=== PATIENT | female | born 1995 | race Caucasian/White ===

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

== ENCOUNTER 2018-07-28 12:48 | Emergency (ER) | payer MEDICAID, OTHER ==
[2018-07-28 13:00] VITALS: BP 132/83
--- NOTE | 2018-07-28 13:59 | UC ---
Back Pain HPI - HPI Summary HPI Summary: severe back pain x 5 days pain is on right middle back , radiating to her right leg pain is 9 out of 10 injury at work as she was lifting something heavy increase pain with movements, better with rest - History of Current Complaint Chief Complaint: UCBackPain Stated Complaint: BACK PAIN Time Seen by Provider: 07/28/18 12:52 Hx Obtained From: Patient Hx Last Menstrual Period: 06/28/18 ?: No Onset/Duration: Sudden Onset, Lasting Days - 5, Still Present Timing: Constant Severity Initially: Severe Severity Currently: Severe Pain Intensity: 9 Pain Scale Used: 0-10 Numeric Back Pain: Is Discrete @ - right middle back, Radiates To - right leg Character: Throbbing Aggravating Factor(s): Movement, Lifting, Bending, Walking, Cough Alleviating Factor(s): Rest Associated Signs And Symptoms: Negative: Swelling, Redness, Bruising, Fever, Weakness, Numbness, Tingling, Abdominal Pain, Flank Pain, Bladder Incontinence - Allergies/Home Medications Allergies/Adverse Reactions: Allergies Allergy/AdvReac Type Severity Reaction Status Date / Time amoxicillin Allergy Severe Hives Verified 07/28/18 12:51 Home Medications: Home Medications NK [No Home Medications Reported] 07/28/18 [History Confirmed 07/28/18] PMH/Surg Hx/FS Hx/Imm Hx Previously Healthy: Yes - Surgical History Surgical History: None - Family History Known Family History: Negative: Diabetes - Social History Alcohol Use: Occasionally Substance Use Type: Marijuana Smoking Status (MU): Heavy Every Day Tobacco Smoker Type: Cigarettes Have You Smoked in the Last Year: Yes Household Exposure Type: Cigarettes - Immunization History Most Recent Influenza Vaccination: 09/12/16 Most Recent Tetanus Shot: 2016 Most Recent Pneumonia Vaccination: never Review of Systems Constitutional: Negative Skin: Negative Eyes: Negative ENT: Negative Respiratory: Negative Is Patient Immunocompromised?: No All Other Systems Reviewed And Are Negative: Yes Physical Exam Triage Information Reviewed: Yes Appearance: Pain Distress, Thin Vital Signs: Initial Vital Signs Temp 97.8 F 07/28/18 12:57 Pulse 110 07/28/18 12:57 Resp 20 07/28/18 12:57 BP 132/83 07/28/18 12:57 Pulse Ox 100 07/28/18 12:57 Vital Signs Reviewed: Yes Eyes: Positive: Conjunctiva Clear ENT: Positive: Normal ENT inspection, Hearing grossly normal, Pharynx normal Neck: Positive: Supple, Nontender, No Lymphadenopathy Respiratory: Positive: Chest non-tender, Lungs clear, Normal breath sounds Cardiovascular: Positive: RRR, No Murmur, Pulses Normal Musculoskeletal: Positive: Strength Intact, ROM Intact, Other: - back exam : no erythema, + severe tenderness right middle back , Back Pain Course/Dx - Differential Dx/Diagnosis Provider Diagnoses: back strain Discharge - Sign-Out/Discharge Documenting (check all that apply): Patient Departure All imaging exams completed and their final reports reviewed: No Studies - Discharge Plan Condition: Stable Disposition: HOME Prescriptions: Cyclobenzaprine TAB* [Flexeril 10 MG TAB*] 10 mg PO BID PRN #20 tab PRN Reason: Pain Naproxen [Naproxen 500 mg tab] 500 mg PO BID #20 tablet Patient Education Materials: Low Back Strain (ED) Forms: *Work Release Referrals: Tigist SCOTT,Cora Sharpe [Primary Care Provider] - - Billing Disposition and Condition Condition: STABLE Disposition: Home
== END 2018-07-28 13:12 | disposition home or self-care (01) ==
LOC: UCEAST 12:48
DX: S29.012A Strain of muscle and tendon of back wall of thorax, initial encounter (principal); X50.0XXA Overexertion from strenuous movement or load, initial encounter; Y93.9 Activity, unspecified; Y92.9 Unspecified place or not applicable; Y99.0 Civilian activity done for income or pay; Z88.0 Allergy status to penicillin; F17.210 Nicotine dependence, cigarettes, uncomplicated
CPT/HCPCS: 99212; G0463

== ENCOUNTER 2018-07-30 12:23 | Inpatient (IN) | payer MEDICAID, OTHER ==
[2018-07-30] MEDS ORDERED: NS 0.9% 1000 ML* 1,000 ML IV ONE ×2 (12:59→13:30)
[2018-07-30] MEDS ORDERED: Acetaminophen TAB* 325 MG PO ONE (13:03)
[2018-07-30] MEDS ORDERED: Ondansetron INJ* 2 MG/ML VIAL IV ONE (13:03)
[2018-07-30] MEDS ORDERED: Morphine VIAL* 10 MG/ML 1 ML VIAL IV ONE (13:03)
[2018-07-30] MEDS ORDERED: Acetaminophen TAB* 325 MG ONE (13:05)
[2018-07-30] MEDS ORDERED: Morphine INJ* 4 MG/ML 1 ML SYRINGE (NEW SYRINGE VERSION) ONE (13:05)
[2018-07-30] MEDS ORDERED: Ondansetron INJ* 2 MG/ML VIAL ONE (13:06)
[2018-07-30] MEDS ORDERED: NS 0.9% 1000 ML* 1,000 ML IV SCH (13:15)
--- NOTE | 2018-07-30 13:19 | RAD ---
INDICATION: Fever. COMPARISON: There are no relevant prior studies available for comparison. TECHNIQUE: A portable view of the chest was obtained. FINDINGS: Cardiac and mediastinal contours appear to be within normal limits. The lungs are clear. No pleural effusion is seen. IMPRESSION: NO EVIDENCE FOR ACUTE DISEASE.
--- NOTE | 2018-07-30 13:32 | ED ---
Abdominal Pain/Female - HPI Summary HPI Summary: This patient is a 23 year old F presenting to [facility] with a chief complaint of gradually worsening 10/10 RLQ abd pain since 07/24/18. She endorses fever and mild nausea. She denies emesis, diarrhea, hematuria, vaginal bleeding, blood in stool, SOB, and CP. - History of Current Complaint Chief Complaint: EDAbdPain Stated Complaint: BACK PAIN/ABD PAIN Time Seen by Provider: 07/30/18 12:55 Hx Obtained From: Patient Hx Last Menstrual Period: 06/28/18 Onset/Duration: Lasting Days, Still Present, Worse Since - gradually Timing: Constant Severity Initially: Moderate Severity Currently: Severe Pain Intensity: 10 Pain Scale Used: 0-10 Numeric Location: Discrete At: RLQ Radiates: No Aggravating Factor(s): Nothing Alleviating Factor(s): Nothing Associated Signs and Symptoms: Positive: Fever, Nausea. Negative: Chest Pain, Blood in Stool, Vaginal Bleeding, Vomiting, Diarrhea, Other: - SOB Allergies/Adverse Reactions: Allergies Allergy/AdvReac Type Severity Reaction Status Date / Time amoxicillin Allergy Severe Hives Verified 07/30/18 13:34 PMH/Surg Hx/FS Hx/Imm Hx Endocrine/Hematology History: Denies: Hx Sickle Cell Disease Cardiovascular History: Denies: Hx Pacemaker/ICD Respiratory History: Reports: Hx Asthma - Pt is a smoker Sensory History: Denies: Hx Legally Blind, Hx Deafness Opthamlomology History: Denies: Hx Legally Blind EENT History: Denies: Hx Deafness Psychiatric History: Reports: Hx Anxiety, Hx Depression - Immunization History Immunizations Up to Date: Yes Infectious Disease History: No Infectious Disease History: Denies: Traveled Outside the [place] in Last 30 Days - Family History Known Family History: Negative: Diabetes - Social History Alcohol Use: Occasionally Hx Substance Use: Yes Substance Use Type: Reports: Marijuana Hx Tobacco Use: Yes Smoking Status (MU): Current Every Day Smoker Type: Cigarettes Have You Smoked in the Last Year: Yes Review of Systems Positive: Fever Negative: Chest Pain Negative: Shortness Of Breath Positive: Abdominal Pain, Nausea. Negative: Vomiting, Diarrhea Negative: dysuria, discharge, hematuria, pain All Other Systems Reviewed And Are Negative: Yes Physical Exam - Summary Physical Exam Summary: Appearance: Well appearing, no pain distress Skin: warm, dry, reflects adequate perfusion Head/face: normal Eyes: EOMI, FREEDOM ENT: normal Neck: supple, non-tender Respiratory: CTA, breath sounds present Cardiovascular: Tachycardia, pulses symmetrical Abdomen: RLQ tenderness, Bowel: present Musculoskeletal: normal, strength/ROM intact Neuro: normal, sensory motor intact, A&Ox3 Triage Information Reviewed: Yes Vital Signs On Initial Exam: Initial Vitals Temp Pulse Resp BP Pulse Ox 100.1 F 155 22 136/81 95 07/30/18 12:47 07/30/18 12:47 07/30/18 12:47 07/30/18 12:47 07/30/18 12:47 Vital Signs Reviewed: Yes Diagnostics - Vital Signs Vital Signs Temp Pulse Resp BP Pulse Ox 07/30/18 13:12 16 07/30/18 13:03 155 22 137/86 100 07/30/18 12:59 161 18 100 07/30/18 12:47 100.1 F 155 22 136/81 95 - Laboratory Result Diagrams: 07/30/18 13:15 07/30/18 13:15 Lab Statement: Any lab studies that have been ordered have been reviewed, and results considered in the medical decision making process. - Radiology CXR Xray Interpretation: No Acute Changes Radiology Interpretation Completed By: Radiologist - No evidence for acute disease. Dr. Joseph has reviewed this report. - CT A/P CT Interpretation: Positive (See Comments) CT Interpretation Completed By: Radiologist - Multiple wedge-shaped defects are noted in the delayed images of the right kidney. Findings are suspicious for pyelonephritis. No obstructive uropathy is noted. A portion of a normal appendix is visualized although the distal tip is not well demonstrated. Small to moderate amount of free fluid is noted in the cul-de-sac. There may be a small amount of pericholecystic fluid noted although no evidence of gallstones are noted. Dr. Joseph has reviewed this report. - EKG 1257 Cardiac Rate: Tachycardia - 153 EKG Rhythm: Sinus Tachycardia ST Segment: Normal Ectopy: None EKG Interpretation: No acute changes Abdominal Pain Fem Course/Dx - Course Course Of Treatment: A 23-year-old F presents to the ED with a CC of worsening, now severe, 10/10 RLQ abd pain since 07/24/18. (+) fever, nausea. (-) CP, SOB, emesis, diarrhea, hematuria, vaginal bleeding, blood in stool. An EKG reveals sinus tachycardia at 153 BPM and no acute changes. A CXR was (-). A CT A/P reveals multiple wedge-shaped defects are noted in the delayed images of the right kidney. Findings are suspicious for pyelonephritis. No obstructive uropathy is noted. A portion of a normal appendix is visualized although the distal tip is not well demonstrated. Small to moderate amount of free fluid is noted in the cul-de-sac. There may be a small amount of pericholecystic fluid noted although no evidence of gallstones are noted. In the ED course, pt was given nl saline, tylenol, morphine, and zofran. - Diagnoses Differential Diagnosis: Positive: Appendicitis, Diverticulitis, Pancreatitis, Renal Colic, Urinary Tract Infection Provider Diagnoses: Pyelonephritis - Provider Notifications Discussed Care Of Patient With: Cornelia Varela Time Discussed With Above Provider: 15:50 Instructed by Provider To: Other - Accepts admission. - Critical Care Time Critical Care Time: 30-74 min Discharge - Sign-Out/Discharge Documenting (check all that apply): Patient Departure - admit - Discharge Plan Condition: Fair Disposition: ADMITTED TO [facility] Referrals: Tigist SCOTT,Cora Sharpe [Nurse Practitioner] - - Billing Disposition and Condition Condition: FAIR Disposition: Admitted to [facility] - Attestation Statements Document Initiated by Carlos: Yes Documenting Scribe: Everton Lino Provider For Whom Carlos is Documenting (Include Credential): Dr. Ger Joseph MD Scribe Attestation: Everton Anand scribed for Dr. Ger Joseph MD on 07/30/18 at 1630. Scribe Documentation Reviewed: Yes Provider Attestation: The documentation as recorded by the Everton segovia accurately reflects the service I personally performed and the decisions made by me, Dr. Ger Joseph MD
[2018-07-30 13:33] LABS: Hematocrit 44 % (35-47); Hemoglobin 14.7 g/dl (12.0-16.0); Mean Corpuscular HGB Conc 34 g/dl (31-36); Mean Corpuscular Hemoglobin 31 pg (27-31); Mean Corpuscular Volume 91 fL (80-97); Mean Platelet Volume 7.9 um3 (7.4-10.4); Platelet Count 249 10^3/ul (150-450); Red Blood Count 4.82 10^6/ul (4.00-5.40); Red Cell Distribution Width 13 % (10.5-15); White Blood Count 16.5 10^3/ul (3.5-10.8)
[2018-07-30 13:42] LABS: Activated Partial Thrombo Time 27.9 seconds (26.0-36.3); INR 0.94 (0.77-1.02)
[2018-07-30 13:44] LABS: ALT 12 U/L (7-52); AST 13 U/L (13-39); Albumin 3.9 g/dL (3.2-5.2); Albumin/Globulin Ratio 1.2 (1-3); Alkaline Phosphatase 48 U/L (34-104); Anion Gap 6 mmol/L (2-11); BUN/Creatinine Ratio 15.3 (8-20); Blood Urea Nitrogen 9 mg/dL (6-24); CO2 Carbon Dioxide 22 mmol/L (22-32); Calcium 9.3 mg/dL (8.6-10.3); Chloride 106 mmol/L (101-111); EGFR Non-African American 128.7 (>60); Globulin 3.2 g/dL (2-4); Glucose 103 mg/dL (70-100); Potassium 3.8 mmol/L (3.5-5.0); Sodium 134 mmol/L (135-145); Total Protein 7.1 g/dL (6.4-8.9)
[2018-07-30 13:50] LABS: HCG Pregnancy < 0.60 mIU/mL
[2018-07-30] MEDS ORDERED: Iohexol 300* (CONTRAST) 10 ML SDV IV ONE (14:10)
[2018-07-30 14:48] LABS: ABS Basophils 0 10^3/ul (0-0.2); ABS Eosinophils 0 10^3/ul (0-0.6); ABS Neutrophils 13.9 10^3/ul (1.5-7.7); Immature Granulocytes 7 % (0-9); Lymphocytes % 7 % (25-47); Monocytes % 2 % (0-7); Neutrophil % 84 % (38-83)
[2018-07-30 14:53] LABS: Urine Appearance Cloudy; Urine Bilirubin Negative (Negative); Urine Blood 2+ (Negative); Urine Color Yellow; Urine Glucose Negative (Negative); Urine Ketones Negative (Negative); Urine Nitrite Positive (Negative); Urine Protein 1+(30 mg/dL) (Negative); Urine Specific Gravity 1.006 (1.010-1.030); Urine Urobilinogen Negative (Negative)
[2018-07-30 15:01] LABS: Urine Bacteria 2+ (Absent); Urine Red Blood Cell 3+(>10/hpf) (Absent); Urine Transitional Epithelial Present (Absent); Urine White Blood Cell 3+(>20/hpf) (Absent)
--- NOTE | 2018-07-30 15:32 | RAD ---
Indication: Right lower quadrant tenderness. Contrast: Administered 64.0 ml of OMNIPAQUE 300 mg/ml CT of the abdomen and pelvis was performed after oral and IV contrast. Coronal and sagittal reconstructed images were obtained. Lung bases demonstrate no pleural fluid, nodules or masses. Heart is of normal size without evidence of pericardial effusion. Liver is normal in size. No focal lesions or intrahepatic ductal dilatation is noted. The gallbladder demonstrates no calcified gallstones. A small amount of pericholecystic fluid is present. The common duct is not dilated. Pancreas indicates no mass or pancreatic duct dilatation. Spleen is normal in size. No adrenal lesions are noted. The kidneys demonstrate symmetric nephrograms. Multiple wedge-shaped defects are noted in the delayed views of the right kidney. These defects are suspicious for pyelonephritis. The left kidney is otherwise unremarkable. No retroperitoneal adenopathy is noted. Aorta and inferior vena cava are unremarkable. No dilated loops of bowel are noted. The colon is filled with stool. The proximal appendix is visualized and appears to be normal caliber. The distal appendix is not well demonstrated. The urinary bladder demonstrates no focal masses. The uterus and ovaries are unremarkable. A small to moderate amount of free fluid is noted in the cul-de-sac. IMPRESSION: Multiple wedge-shaped defects are noted in the delayed images of the right kidney. Findings are suspicious for pyelonephritis. No obstructive uropathy is noted. A portion of a normal appendix is visualized although the distal tip is not well demonstrated. Small to moderate amount of free fluid is noted in the cul-de-sac. There may be a small amount of pericholecystic fluid noted although no evidence of gallstones are noted.
[2018-07-30] MEDS ORDERED: Levofloxacin 500 MG IVPREMIX(* 500 MG/100 ML BAG IVPB ONE (15:38)
--- NOTE | 2018-07-30 16:45 | RAD ---
Indication: Cholecystitis. Real-time sonography of the right upper quadrant performed. The liver is at the upper limits of normal in size. No focal lesions or intrahepatic duct dilatation is noted. The gallbladder is partially contracted with apparent wall thickening of 3 mm. Common duct measures 0.4 cm. The right kidney measures 12.4 x 5.2 x 5.6 cm with hydronephrosis. The pancreas head, neck and proximal body demonstrates no mass or pancreatic duct dilatation. Aorta and inferior vena cava are unremarkable. IMPRESSION: Partially contracted gallbladder with no gallstones. Mild wall thickening of the gallbladder is noted.
[2018-07-30] MEDS ORDERED: Morphine INJ* 4 MG/ML 1 ML SYRINGE (NEW SYRINGE VERSION) IV PRN (16:54)
[2018-07-30] MEDS ORDERED: Ondansetron INJ* 2 MG/ML VIAL IV PRN (16:54)
[2018-07-30] MEDS: NS 0.9% 1000 ML* 1,000 ML IV SCH ×2 (17:23→18:36)
[2018-07-30] MEDS: Morphine VIAL* 4 MG/ML VIAL (1 ml vial) IV PRN (18:35)
[2018-07-30] MEDS: HYDROcodone/ACETAMIN 5-325 MG* 1 TAB PO PRN ×2 (18:41→22:37)
[2018-07-30] MEDS ORDERED: Docusate CAP* 100 MG PO PRN (20:49)
[2018-07-30] MEDS ORDERED: Senna TAB PO PRN (20:49)
--- NOTE | 2018-07-30 21:40 | HP ---
CC: Dr. Zach Munoz * HISTORY AND PHYSICAL: DATE OF ADMISSION: 07/30/18 PRIMARY CARE PROVIDER: Dr. Zach Munoz. CHIEF COMPLAINT: Right flank pain. HISTORY OF PRESENT ILLNESS: Ms. Flores is a 23-year-old female who states that this past Friday, on 07/24/18, she began to have right-sided flank pain. 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 She noted the pain continued to worsen and therefore, on 07/28/18, was seen at urgent care. At that point, she was started on naproxen and Flexeril for presumed muscle pull. Ultimately, the pain progressed, now wraps around to her right side of the abdomen. She also feels pain into her groin. She denies any fevers or chills, but states that in the emergency room at [facility], she was identified to have a fever. She denies any dysuria. She notes that her urine output has decreased. She also notes that her urine has been cloudy and smells foul. She has never had anything like this in the past. PAST MEDICAL HISTORY: None. PAST SURGICAL HISTORY: Tonsillectomy. MEDICATIONS: OCP. ALLERGIES: AMOXICILLIN, which causes hives. FAMILY HISTORY: Mom is living, she is 53 and healthy. Dad is living, he is 49 and has a history of emphysema and diabetes. SOCIAL HISTORY: The patient smokes 1 pack per day. She drinks alcohol occasionally. She denies any recreational drugs. She works as a commercial attorney. She is not . She has 1 child. She indicates that her mom and dad will be her healthcare proxies. REVIEW OF SYSTEMS: The patient denies any fevers prior to today. No anorexia. She states that she has chest pain, though when I asked to clarify this, she points to her right lower ribs. She denies any cough. She states that yes she has shortness of breath; however, again when I asked to clarify this, she states that it hurts to take a deep breath in. She denies any nausea or vomiting. She does admit to the right-sided abdominal pain. She also admits to constipation. No hematuria, no dysuria. No focal weakness or sensory loss. No sudden changes in vision. No dysphagia. No joint pains or muscle pains out of the ordinary. No rashes. No anxiety or depression. PHYSICAL EXAMINATION GENERAL: The patient is a well-developed thin young female seen sitting up in the stretcher, in no acute distress. VITAL SIGNS: Blood pressure 108/77, pulse 109, respirations 20, temp 100.1, O2 sat 100% on room air. HEENT: Pupils are equal and round. Extraocular muscles are intact. Oropharynx is clear. Oral mucosa is slightly dry. There is no submandibular, cervical, or supraclavicular adenopathy. Thyroid is not enlarged. No thyroid nodules are noted. PULMONARY: Lungs are clear to auscultation bilaterally. CARDIAC: Normal S1, S2. Heart rate is tachycardic, but regular. There is no lower extremity edema. ABDOMEN: Bowel sounds are present. Abdomen is soft, nondistended. She is moderately tender to palpation in the right upper and lower quadrants. There is right-sided CVA tenderness. MUSCULOSKELETAL: There is no cyanosis or clubbing of the digits. There is full active range of motion of all 4 extremities. NEURO: Cranial nerves II through XII are grossly intact. Sensation is intact to light touch throughout. Strength is 5/5 and symmetric in both upper and lower extremities bilaterally. PSYCH: The patient is alert. She is oriented x3. Affect appears appropriate. SKIN: Warm and dry. There are no rashes. DIAGNOSTIC STUDIES/LAB DATA: WBC 16.5, hemoglobin 14.7, hematocrit 44, platelets 249,000. INR 0.94. Sodium 134, potassium 3.8, chloride 106, CO2 of 22, BUN 9, creatinine 0.59, glucose 103, lactic acid 1.6, calcium 9.3. Bilirubin 0.3, AST 13, ALT 12, alk phos 48. Albumin 3.9, lipase less than 10. Urinalysis reveals specific gravity of 1.006, 1+ protein, 2+ blood, positive nitrites, 3+ leukocyte esterase, 3+ wbc's, 2+ rbc's, 2+ bacteria. EKG reveals sinus tachycardia without any acute ST-T wave abnormalities. Chest x-ray: No evidence for acute disease. CT abdomen and pelvis: There are multiple wedge-shaped defects that are noted in the delayed images of the right kidney. Findings are suspicious for pyelonephritis. No obstructive uropathy is noted. A portion of normal appendix is visualized, although the distal tip is not well demonstrated. A small to moderate amount of free fluid is noted in the cul-de-sac. There may be a small amount of pericholecystic fluid noted, although no evidence of gallstones is noted. Gallbladder ultrasound reveals a partially contracted gallbladder with no gallstones. Mild wall thickening of the gallbladder is noted. The common bile duct measures 0.4 cm. ASSESSMENT AND PLAN: Ms. Flores is a 23-year-old female, who has no significant past medical history, who presents to the emergency room with complaints of right flank pain for the last 7 days and is identified to be septic secondary to right-sided pyelonephritis. 1. Sepsis secondary to right-sided pyelonephritis. By sepsis-2 criteria, the patient is septic with tachycardia, tachypnea, and leukocytosis. The patient has no evidence of end organ dysfunction. At this point, the patient will be admitted for IV antibiotics for treatment of her pyelonephritis. She will continue to receive IV fluids at 100 mL per hour. The patient has received 2 L of normal saline in the emergency room bolused, which surpasses the 30 mL/kg recommendation for sepsis. Despite this, the patient does remain tachycardic, though generally her heart rate is much improved. The patient will have followup labs tomorrow. As she is allergic to AMOXICILLIN, we will continue Levaquin, which was started in the emergency room. The patient will have pain control with morphine and [place] as well as nausea control with Zofran. 2. DVT prophylaxis: According to the Adult Thrombosis Prophylaxis Risk Factor Assessment Guide, the patient has a total risk factor score of 1 making her low risk. Ambulation will be utilized as DVT prophylaxis. 3. Code status is full. TIME SPENT: Fifty five minutes were spent admitting this patient. [id number]/[facility] #: [id number] HOW[place]
[2018-07-30] MEDS: Nicotine PATCH 14 MG/24 HR* PATCH TRANSDERM SCH (22:37)
[2018-07-31] MEDS: Morphine VIAL* 4 MG/ML VIAL (1 ml vial) IV PRN (00:29)
[2018-07-31] MEDS: HYDROcodone/ACETAMIN 5-325 MG* 1 TAB PO PRN ×2 (04:02→08:44)
[2018-07-31] MEDS: NS 0.9% 1000 ML* 1,000 ML IV SCH (05:09)
[2018-07-31] MEDS ORDERED: Morphine VIAL* 4 MG/ML VIAL (1 ml vial) IV PRN (05:24)
[2018-07-31 07:16] LABS: Hematocrit 34 % (35-47); Hemoglobin 11.4 g/dl (12.0-16.0); Mean Corpuscular HGB Conc 34 g/dl (31-36); Mean Corpuscular Hemoglobin 31 pg (27-31); Mean Corpuscular Volume 91 fL (80-97); Mean Platelet Volume 7.5 um3 (7.4-10.4); Platelet Count 198 10^3/ul (150-450); Red Blood Count 3.73 10^6/ul (4.00-5.40); Red Cell Distribution Width 13 % (10.5-15); White Blood Count 13.8 10^3/ul (3.5-10.8)
[2018-07-31 07:41] LABS: BUN/Creatinine Ratio 11.4 (8-20); Calcium 8.4 mg/dL (8.6-10.3); EGFR Non-African American 180.5 (>60); Potassium 4.4 mmol/L (3.5-5.0)
[2018-07-31] MEDS: Nicotine PATCH 14 MG/24 HR* PATCH TRANSDERM SCH (08:43)
[2018-07-31 10:32] VITALS: BP 140/79
--- NOTE | 2018-07-31 11:24 | PN ---
"Progress Note - Progress Note Date of Service: 07/31/18 Note: This report was requested by: Kelby Escobedo | Reference #: [id number] Others' Prescriptions Patient Name: Jen Flores Date: 1995 Address: [place] [address] Sex: Female Rx Written Rx Dispensed Drug Quantity Days Supply Prescriber Name 05/13/2018 05/13/2018 oxycodone-acetaminophen 5-325 mg tab 20 5 Maria Luisa Chance ( DDS)"
[2018-07-31] MEDS ORDERED: Levofloxacin 500 MG IVPREMIX(* 500 MG/100 ML BAG IVPB SCH (16:00)
[2018-07-31] MEDS ORDERED: Nicotine Patch Removal NOTE PATCH OFF SCH (21:00)
--- NOTE | 2018-08-01 03:54 | DS ---
DISCHARGE SUMMARY: DATE OF ADMISSION: DATE OF DISCHARGE: 07/31/18 HISTORY OF PRESENT ILLNESS: This 23-year-old woman developed right flank pain about a week ago. She was seen at Urgent Care. She was thought to initially have some type of musculoskeletal injury and was prescribed cyclobenzaprine and naproxen; however, she did not get better. She came to the [facility]. A fever was identified there. She had no fever here. She had abnormal urinalysis. CT scan showed m ultiple wedge-shaped defects in the right kidney consistent with pyelonephritis. Her temperature was 100.1 first noted on 07/30/18, at 12:47 p.m. I do not see any records of temperatures in the emergen cy room itself. The patient was given levofloxacin. Two blood cultures were drawn and no growth at the time of this dictation. Urine seems to be growing the E. coli. Sensitivities are pending. The patient will be discharged on the 7-day course of ciprofloxacin. She was instructed to call me t omorrow to get her urine sensitivities. She was given 10 oxycodone and acetaminophen to use p.r.n. p ain. I note the patient was having a personal crisis at the time of discharge I believe relating to her re lationship with her boyfriend. He came and seemed to be helpful and will be driving her to her [facility] home. She will steel pickler her prescriptions first. She was given a work release to return to work on 08/06/18. FINAL DIAGNOSES: 1. Pyelonephritis. 2. Tobacco use disorder. MEDICATIONS ON DISCHARGE: 1. Ciprofloxacin 500 mg b.i.d. for 7 days. 2. Nicotine patch 14 mg daily. 3. Oxycodone and acetaminophen 5/325 one every 4 hours p.r.n. maximum. FOLLOWUP: The patient will f ollow up with [facility]. DISCHARGE DISPOSITION: Home. DISCHARGE CONDITION: Improved. [id number]/[facility] #: [id number]
== END 2018-07-31 11:20 | disposition home or self-care (01) | DRG 720 ==
LOC: ED 12:23 → INTOOBSV 16:44 → MED 16:44 → OBSVTOIN 16:44
PROVIDERS: ADMIT Hospitalist; ATTEND Internal Medicine
DX: A41.9 Sepsis, unspecified organism (principal); N12 Tubulo-interstitial nephritis, not specified as acute or chronic; J45.909 Unspecified asthma, uncomplicated; F41.9 Anxiety disorder, unspecified; F32.9 Major depressive disorder, single episode, unspecified; F17.210 Nicotine dependence, cigarettes, uncomplicated; Z72.89 Other problems related to lifestyle; Z88.0 Allergy status to penicillin
CPT/HCPCS: 36415; 71045; 74177; 76705; 80048; 80053; 81003; 81015; 83605; 83690; 84702; 85025; 85027; 85610; 85730; 87040; 87077; 87086; 87186; 93005; 99283; A9270-GY; J1956; J2270; J2405; Q9967

== ENCOUNTER 2018-08-02 18:15 | Emergency (ER) | payer MEDICAID ==
[2018-08-02 19:44] LABS: Urine Appearance Cloudy; Urine Blood 1+ (Negative); Urine Color Yellow; Urine Ketones Negative (Negative); Urine Protein Negative (Negative); Urine Red Blood Cell Trace(0-2/hpf) (Absent); Urine Specific Gravity 1.017 (1.010-1.030); Urine Urobilinogen Negative (Negative); Urine White Blood Cell Absent (Absent)
[2018-08-02 19:49] LABS: ABS Basophils 0 10^3/ul (0-0.2); ABS Eosinophils 0.2 10^3/ul (0-0.6); ABS Lymphocytes 1.6 10^3/ul (1.0-4.8); ABS Monocytes 0.7 10^3/ul (0-0.8); ABS Neutrophils 2.1 10^3/ul (1.5-7.7); ABS Nucleated RBC 0 10^3/ul; Eosinophil % 3.7 % (0-6); Hematocrit 40 % (35-47); Hemoglobin 13.6 g/dl (12.0-16.0); Lymphocyte % 35.4 % (25-47); Mean Corpuscular HGB Conc 34 g/dl (31-36); Mean Corpuscular Hemoglobin 30 pg (27-31); Mean Corpuscular Volume 90 fL (80-97); Nucleated Red Blood Cells % 0.1; Platelet Count 341 10^3/ul (150-450); Red Blood Count 4.48 10^6/ul (4.00-5.40); Red Cell Distribution Width 13 % (10.5-15); White Blood Count 4.6 10^3/ul (3.5-10.8)
[2018-08-02 20:04] LABS: EGFR Non-African American 131.2 (>60)
[2018-08-02] MEDS ORDERED: NS 0.9% 1000 ML* 1,000 ML IV ONE (21:08)
[2018-08-02] MEDS ORDERED: Ondansetron INJ* 2 MG/ML VIAL IV ONE (21:08)
[2018-08-02] MEDS ORDERED: Ketorolac INJ* 30 MG/ML 1 ML VIAL IV PUSH ONE (21:09)
--- NOTE | 2018-08-02 22:05 | ED ---
Abdominal Pain/Female - HPI Summary HPI Summary: The pt is a 23 y.o female presenting to the [facility] with a chief complaint of right flank pain. The pt was seen at the [facility] prior for a kidney infection. She states she has back pain that radiates to the abd and down to the legs. She denies and states she is on control. The pt also denies fevers, chills, vaginal discharge, STD hx, blurry vision, double vision, ear ache, sore throat, chest pain, N/V, SOB, hematuria, and rashes. She reports she has AMAYA, anxiety, depression, neck pain and that she easily bruises. She was receiving treatment for depression but stopped after her previous . She also reports palpitations. The patient rates the pain 6/10 in severity. Symptoms aggravated by nothing. Symptoms alleviated by nothing. - History of Current Complaint Chief Complaint: EDFlankPain Stated Complaint: ABD AND BACK PAIN Hx Obtained From: Patient Hx Last Menstrual Period: 06/28/18 Onset/Duration: Gradual Onset, Lasting Days - since Friday (07/31/18) Severity Initially: Moderate Severity Currently: Moderate Pain Intensity: 6 Pain Scale Used: 0-10 Numeric Radiates to: Back, Other - abd and lower extremities Aggravating Factor(s): Nothing Alleviating Factor(s): Nothing Allergies/Adverse Reactions: Allergies Allergy/AdvReac Type Severity Reaction Status Date / Time amoxicillin Allergy Severe Hives Verified 08/02/18 18:21 PMH/Surg Hx/FS Hx/Imm Hx Endocrine/Hematology History: Denies: Hx Diabetes, Hx Sickle Cell Disease Cardiovascular History: Denies: Hx Hypertension, Hx Pacemaker/ICD Respiratory History: Reports: Hx Asthma - Pt is a smoker Sensory History: Denies: Hx Contacts or Glasses, Hx Legally Blind, Hx Deafness, Hx Hearing Aid Opthamlomology History: Denies: Hx Contacts or Glasses, Hx Legally Blind Psychiatric History: Reports: Hx Anxiety, Hx Depression - Immunization History Date of Tetanus Vaccine: unk Date of Influenza Vaccine: none Infectious Disease History: No Infectious Disease History: Denies: Traveled Outside the [place] in Last 30 Days - Family History Known Family History: Positive: Other - Cancer Negative: Cardiac Disease, Diabetes Family History: Reviewed and noncontributory - Social History Alcohol Use: Weekly Alcohol Amount: few drinks in the weekend Hx Substance Use: Yes Substance Use Type: Reports: None Substance Use Comment - Amount & Last Used: pt denies use Hx Tobacco Use: Yes Smoking Status (MU): Heavy Every Day Tobacco Smoker Type: Cigarettes Amount Used/How Often: 1 pack a day Have You Smoked in the Last Year: Yes Review of Systems Negative: Fever, Chills Eyes: Other - Negative double vision Negative: Blurred Vision Negative: Sore Throat, Ear Ache Negative: Chest Pain Negative: Shortness Of Breath Negative: Abdominal Pain, Vomiting, Nausea Negative: burning, hematuria Musculoskeletal: Other - Negative back pain Negative: Rash Positive: Headache Positive: Anxious, Depressed All Other Systems Reviewed And Are Negative: No Physical Exam - Summary Physical Exam Summary: Appearance: Mild discomfort Skin: Warm, dry, no mottling, no rashes, no contusions HEENT: EOMI, PERRL, moist mucous membranes Neck: No masses on the neck, supple Respiratory: Clear to auscultation, breath sounds present, no rales, no rhonchi , no wheezes Cardiovascular: RRR, pulses are symmetrical in both lower and upper extremities Abdomen: Soft, non-tender Bowel Sounds: Present Musculoskeletal: No CVA tenderness, no obvious deformity, moving all extremities in a grossly normal manner Neurological: A&Ox3, CN II-XII Intact, moving all extremities symmetrically Psychiatric: Normal affect and mood Triage Information Reviewed: Yes Vital Signs On Initial Exam: Initial Vitals Temp Pulse Resp BP Pulse Ox 97.4 F 129 16 130/86 99 08/02/18 18:16 08/02/18 18:16 08/02/18 18:16 08/02/18 18:16 08/02/18 18:16 Vital Signs Reviewed: Yes Diagnostics - Vital Signs Vital Signs Temp Pulse Resp BP Pulse Ox 08/02/18 19:00 117 18 100 08/02/18 18:51 116 23 120/89 100 08/02/18 18:16 97.4 F 129 16 130/86 99 - Laboratory Lab Results: Lab Results 08/02/18 08/02/18 08/02/18 Range/Units 19:25 19:35 19:35 WBC 4.6 (3.5-10.8) 10^3/ul RBC 4.48 (4.00-5.40) 10^6/ul Hgb 13.6 (12.0-16.0) g/dl Hct 40 (35-47) % MCV 90 (80-97) fL MCH 30 (27-31) pg MCHC 34 (31-36) g/dl RDW 13 (10.5-15) % Plt Count 341 (150-450) 10^3/ul MPV 7.0 L (7.4-10.4) um3 Neut % (Auto) 44.6 (38-83) % Lymph % (Auto) 35.4 (25-47) % [place] % (Auto) 15.7 H (0-7) % Eos % (Auto) 3.7 (0-6) % Baso % (Auto) 0.6 (0-2) % Absolute Neuts (auto) 2.1 (1.5-7.7) 10^3/ul Absolute Lymphs (auto) 1.6 (1.0-4.8) 10^3/ul Absolute Monos (auto) 0.7 (0-0.8) 10^3/ul Absolute Eos (auto) 0.2 (0-0.6) 10^3/ul Absolute Basos (auto) 0 (0-0.2) 10^3/ul Absolute Nucleated RBC 0 10^3/ul Nucleated RBC % 0.1 Sodium 141 (135-145) mmol/L Potassium 3.6 (3.5-5.0) mmol/L Chloride 106 (101-111) mmol/L Carbon Dioxide 27 (22-32) mmol/L Anion Gap 8 (2-11) mmol/L BUN 12 (6-24) mg/dL Creatinine 0.58 (0.51-0.95) mg/dL Est GFR ( Amer) 158.8 (>60) Est GFR (Non-Af Amer) 131.2 (>60) BUN/Creatinine Ratio 20.7 H (8-20) Glucose 87 (70-100) mg/dL Calcium 9.2 (8.6-10.3) mg/dL Total Bilirubin 0.20 (0.2-1.0) mg/dL AST 20 (13-39) U/L ALT 20 (7-52) U/L Alkaline Phosphatase 57 (34-104) U/L Total Protein 7.0 (6.4-8.9) g/dL Albumin 3.6 (3.2-5.2) g/dL Globulin 3.4 (2-4) g/dL Albumin/Globulin Ratio 1.1 (1-3) Urine Color Yellow Urine Appearance Cloudy Urine pH 6.0 (5-9) Ur Specific [place] 1.017 (1.010-1.030) Urine Protein Negative (Negative) Urine Ketones Negative (Negative) Urine Blood 1+ A (Negative) Urine Nitrate Negative (Negative) Urine Bilirubin Negative (Negative) Urine Urobilinogen Negative (Negative) Ur Leukocyte Esterase Negative (Negative) Urine WBC (Auto) Absent (Absent) Urine RBC (Auto) Trace(0-2/hpf) (Absent) Ur Squamous Epith Cells Present A (Absent) Calcium Oxalate Crystal Present A (Absent) Urine Bacteria Absent (Absent) Urine Glucose Negative (Negative) Result Diagrams: 08/02/18 19:35 08/02/18 19:35 Lab Statement: Any lab studies that have been ordered have been reviewed, and results considered in the medical decision making process. - Ultrasound No standard instances Ultrasound Interpretation Completed By: Radiologist - Pelvic US reveals Sonographically normal uterus and ovaries as per radiologist. ED physician has reviewed this radiology report. Abdominal Pain Fem Course/Dx - Course Course Of Treatment: The pt is a 23 y.o female with chief complaint of right flank pain. The pt's US came back negative as per radiology report. The pt will be discharge home with a dx of abd pain. We recommended follow up with PCP. We discussed the lab results with the pt prior to discharge. - Diagnoses Provider Diagnoses: Abdominal pain Discharge - Sign-Out/Discharge Documenting (check all that apply): Patient Departure - Discharge home - Discharge Plan Condition: Stable Disposition: HOME Patient Education Materials: Acute Abdominal Pain (ED) Referrals: [facility] [Provider Group] No Primary Care Phys,NOPCP [Primary Care Provider] - Additional Instructions: Take tylenol and motrin for pain. return if worse or any new symptoms . It is important to follow up with your primary care physician. - Attestation Statements Document Initiated by Scribe: Yes Documenting Scribe: Rosas Alfred Provider For Whom Scribe is Documenting (Include Credential): Dr. Shelbie Coats Scribe Attestation: Rosas Anand, sussyed for Dr. Shelbie Coats on 08/02/18 at 2217.
--- NOTE | 2018-08-02 22:06 | RAD ---
EXAM: US Pelvis Complete, Transabdominal CLINICAL HISTORY: 23 years old, female; Pain; Pelvic pain TECHNIQUE: Real-time transabdominal pelvic ultrasound (complete) with image documentation. COMPARISON: A/P W CT ABD/PEL W 07/30/2018 3:12 PM FINDINGS: Uterus/cervix: Anteverted anteflexed. Measures 6.0 x 4.0 x 3.2 cm (40 cc). No myometrial masses. Early proliferative phase endometrium measuring 0.4 cm. Right ovary: Right ovary measures 3.1 x 2.8 x 1.3 cm (6 cc). Normal size and echogenicity with no masses. Normal follicles. Normal arterial and venous waveforms. Left ovary: Left ovary measures 2.4 x 2.1 x 1.8 cm (5 cc). Normal size and echogenicity with no masses. Normal follicles. Normal arterial and venous waveforms. Free fluid: Small simple physiologic free fluid in the pelvic cul-de-sac. Bladder: Normal as visualized. Wall is normal thickness for degree of distention. IMPRESSION: Sonographically normal uterus and ovaries.
[2018-08-02 23:47] VITALS: BP 121/90
== END 2018-08-02 23:35 | disposition home or self-care (01) ==
LOC: ED 18:15
DX: R10.9 Unspecified abdominal pain (principal); R51 Headache; F41.9 Anxiety disorder, unspecified; F32.9 Major depressive disorder, single episode, unspecified; M54.2 Cervicalgia; F17.210 Nicotine dependence, cigarettes, uncomplicated; Z88.3 Allergy status to other anti-infective agents
CPT/HCPCS: 36415; 76856; 80053; 81003; 81015; 85025; 96361; 96374; 96375; 99283; J1885; J2405

== ENCOUNTER 2018-08-16 15:22 | Emergency (ER) | payer MEDICAID ==
--- NOTE | 2018-08-16 15:44 | ED ---
Psychiatric Complaint - HPI Summary HPI Summary: This patient is a 23 year old F presenting to [facility] accompanied by family with a chief complaint of depression that began one month ago. The patient rates the pain 0/10 in severity. Symptoms aggravated by nothing. Symptoms alleviated by nothing. Patient reports difficulty sleeping, crying frequently, and anxiety. Patient denies SI and HI. - History Of Current Complaint Chief Complaint: EDMentalHealth Time Seen by Provider: 08/16/18 15:35 Hx Obtained From: Patient Hx Last Menstrual Period: 06/28/18 ?: No Onset/Duration: Sudden Onset, Lasting Weeks, Still Present Timing: Constant Severity Initially: Mild Severity Currently: Mild Character: Depressed, Anxious Aggravating Factor(s): Nothing Alleviating Factor(s): Nothing Associated Signs And Symptoms: Positive: Sleep Disturbance Related History: Positive For: Prior Psychiatric Issues Has Suicidal: Denies: Thoughts Has Homicidal: Denies: Thoughts - Allergies/Home Medications Allergies/Adverse Reactions: Allergies Allergy/AdvReac Type Severity Reaction Status Date / Time amoxicillin Allergy Severe Hives Verified 08/02/18 18:21 PMH/Surg Hx/FS Hx/Imm Hx Previously Healthy: No Endocrine/Hematology History: Denies: Hx Diabetes, Hx Sickle Cell Disease Cardiovascular History: Denies: Hx Hypertension, Hx Pacemaker/ICD Respiratory History: Reports: Hx Asthma - Pt is a smoker Sensory History: Denies: Hx Contacts or Glasses, Hx Legally Blind, Hx Deafness, Hx Hearing Aid Opthamlomology History: Denies: Hx Contacts or Glasses, Hx Legally Blind Psychiatric History: Reports: Hx Anxiety, Hx Depression - Immunization History Date of Tetanus Vaccine: unk Date of Influenza Vaccine: none Infectious Disease History: No Infectious Disease History: Denies: Traveled Outside the [place] in Last 30 Days - Family History Known Family History: Positive: Other - Cancer Negative: Cardiac Disease, Diabetes - Social History Occupation: Unemployed Lives: Alone Alcohol Use: Weekly Alcohol Amount: few drinks in the weekend Hx Substance Use: Yes Substance Use Type: Reports: None Substance Use Comment - Amount & Last Used: pt denies use Hx Tobacco Use: Yes Smoking Status (MU): Heavy Every Day Tobacco Smoker Type: Cigarettes Amount Used/How Often: 1 pack a day Have You Smoked in the Last Year: Yes Review of Systems Negative: Fever Psychological: Other - Positive difficulty sleeping and crying frequently. Negative SI and HI Positive: Anxious, Depressed All Other Systems Reviewed And Are Negative: Yes Physical Exam - Summary Physical Exam Summary: VITAL SIGNS: Reviewed. GENERAL: Patient is a well-developed and nourished female who is lying comfortable in the stretcher. Patient is not in any acute respiratory distress. HEAD AND FACE: No signs of trauma. No ecchymosis, hematomas or skull depressions. No sinus tenderness. EYES: PERRLA, EOMI x 2, No injected conjunctiva, no nystagmus. EARS: Hearing grossly intact. Ear canals and tympanic membranes are within normal limits. MOUTH: Oropharynx within normal limits. NECK: Supple, trachea is midline, no adenopathy, no JVD, no carotid bruit, no c- spine tenderness, neck with full ROM. CHEST: Symmetric, no tenderness at palpation LUNGS: Clear to auscultation bilaterally. No wheezing or crackles. CVS: Regular rate and rhythm, S1 and S2 present, no murmurs or gallops appreciated. ABDOMEN: Soft, non-tender. No signs of distention. No rebound no guarding, and no masses palpated. Bowel sounds are normal. EXTREMITIES: FROM in all major joints, no edema, no cyanosis or clubbing. NEURO: Alert and oriented x 3. No acute neurological deficits. Speech is normal and follows commands. SKIN: Dry and warm PSYCH: Depressed, quiet, and denies any suicidal thoughts or plan. Crying. No homicidal thoughts or plan. No signs of psychosis or pressure speech. No tangential speech. Triage Information Reviewed: Yes Vital Signs On Initial Exam: Initial Vitals Temp Pulse Resp BP Pulse Ox 98.5 F 120 14 133/102 100 08/16/18 15:29 08/16/18 15:29 08/16/18 15:29 08/16/18 15:29 08/16/18 15:29 Vital Signs Reviewed: Yes Diagnostics - Vital Signs Vital Signs Temp Pulse Resp BP Pulse Ox 08/16/18 15:29 98.5 F 120 14 133/102 100 - Laboratory Result Diagrams: 08/16/18 15:38 08/16/18 15:38 Lab Statement: Any lab studies that have been ordered have been reviewed, and results considered in the medical decision making process. Course/Dx - Course Assessment/Plan: This patient is a 23 year old F presenting to [facility] accompanied by family with a chief complaint of depression that began one month ago. The patient rates the pain 0/10 in severity. Symptoms aggravated by nothing. Symptoms alleviated by nothing. Patient reports difficulty sleeping, crying frequently, and anxiety. Patient denies SI and HI. Blood work w/o a significant abnormality. She is medically cleared. She is awaiting for a MHE. Patient is hemodynamically stable and A+O x 3. Patient will be signed out to Dr. Herrmann at shift change. - Differential Dx/Clinical Impression Differential Diagnosis/HQI/PQRI: Positive: Anxiety, Depression Provider Diagnosis: Depression Discharge - Sign-Out/Discharge Documenting (check all that apply): Sign-Out Patient Signing out patient TO: Tyler Herrmann - Upon shift change pending MHE and disposition - Discharge Plan Condition: Stable Referrals: No Primary Care Phys,NOPCP [Medical Doctor] - - Billing Disposition and Condition Condition: STABLE - Attestation Statements Document Initiated by Scribe: Yes Documenting Scribe: Shellie Avila Provider For Whom Scribe is Documenting (Include Credential): Abdias Mccallum MD Scribe Attestation: IShellie, scribed for Abdias Mccallum MD on 08/16/18 at 1855. Scribe Documentation Reviewed: Yes Provider Attestation: The documentation as recorded by the Shellie segovia accurately reflects the service I personally performed and the decisions made by Abdias michaud MD
[2018-08-16 15:47] LABS: ABS Basophils 0.1 10^3/ul (0-0.2); ABS Eosinophils 0.2 10^3/ul (0-0.6); ABS Lymphocytes 2.3 10^3/ul (1.0-4.8); ABS Monocytes 0.4 10^3/ul (0-0.8); ABS Neutrophils 4.5 10^3/ul (1.5-7.7); ABS Nucleated RBC 0 10^3/ul; Eosinophil % 2.4 % (0-6); Hematocrit 39 % (35-47); Hemoglobin 13.4 g/dl (12.0-16.0); Lymphocyte % 30.2 % (25-47); Mean Corpuscular HGB Conc 34 g/dl (31-36); Mean Corpuscular Hemoglobin 31 pg (27-31); Mean Corpuscular Volume 89 fL (80-97); Mean Platelet Volume 7.4 um3 (7.4-10.4); Nucleated Red Blood Cells % 0.1; Platelet Count 514 10^3/ul (150-450); Red Blood Count 4.38 10^6/ul (4.00-5.40); Red Cell Distribution Width 13 % (10.5-15); White Blood Count 7.5 10^3/ul (3.5-10.8)
[2018-08-16 16:03] LABS: EGFR Non-African American 111.1 (>60)
[2018-08-16 16:19] LABS: Urine Appearance Clear; Urine Blood 1+ (Negative); Urine Color Yellow; Urine Ketones Negative (Negative); Urine Protein Negative (Negative); Urine Red Blood Cell 3+(>10/hpf) (Absent); Urine Specific Gravity 1.025 (1.010-1.030); Urine Urobilinogen Negative (Negative); Urine White Blood Cell Trace(0-5/hpf) (Absent)
[2018-08-16] MEDS ORDERED: LORazepam TAB(*) 1 MG PO ONE (16:19)
--- NOTE | 2018-08-16 19:07 | ED ---
Progress - Progress Note Progress Note: Patient was received as a sign out from Dr. Mccallum to Dr. Herrmann at 1900 08/16/18 for shift change pending disposition. 1999 - After reviewing case, Dr. Lyle recommends patient be discharged to home and follow up with [facility]. Dr. Herrmann is agreeable with this plan. Dx of substance abuse, mood disorder. Course/Dx - Course Course Of Treatment: Patient was received as a sign out from Dr. Mccallum to Dr. Herrmann at 1900 08/16/18 for shift change pending disposition. 1999 - After reviewing case, Dr. Lyle recommends patient be discharged to home and follow up with [facility]. Dr. Herrmann is agreeable with this plan. Dx of substance abuse, mood disorder. - Diagnoses Provider Diagnoses: Mood disorder, Substance abuse - Provider Notifications Discussed Care Of Patient With: Carly Lyle Time Discussed With Above Provider: 20:00 Instructed by Provider To: Other - 1999 - After reviewing case, Dr. Lyle recommends patient be discharged to home and follow up with [facility]. Dr. Herrmann is agreeable with this plan. Dx of substance abuse, mood disorder. Discharge - Sign-Out/Discharge Documenting (check all that apply): Patient Departure - discharge - Discharge Plan Condition: Stable Disposition: HOME Referrals: No Primary Care Phys,NOPCP [Medical Doctor] - - Attestation Statements Document Initiated by Scribe: Yes Documenting Scribe: Yuri Ware Provider For Whom Carlos is Documenting (Include Credential): Tyler Herrmann MD Scribe Attestation: Yuri Anand , sussyed for Tyler Herrmann MD on 08/16/18 at 2007.
[2018-08-16 20:18] VITALS: BP 114/71
== END 2018-08-16 20:38 | disposition home or self-care (01) ==
LOC: ED 15:22
DX: F32.9 Major depressive disorder, single episode, unspecified (principal); F17.210 Nicotine dependence, cigarettes, uncomplicated
CPT/HCPCS: 36415; 80053; 80307; 80320; 80329; 81003; 81015; 84443; 85025; 87086; 99284; A9270-GY; G0480

== ENCOUNTER 2019-02-08 09:30 | Emergency (ER) | payer MEDICAID, OTHER ==
[2019-02-08] MEDS ORDERED: NS 0.9% 1000 ML** 1,000 ML IV ONE ×2 (09:46→09:56)
[2019-02-08] MEDS ORDERED: Acetaminophen TAB* 325 MG PO ONE (09:56)
--- NOTE | 2019-02-08 10:02 | ED ---
Influenza-Like Illness - HPI Summary HPI Summary: This patient is a 23 year old F presenting to [facility] accompanied by family with a chief complaint of flu-like symptoms including fever, rhinorrhea, SOB, cough, and body aches for the past three days. Pain worsened today with chest pain and abdominal pain with increased heart rate. Additionally reports rash on abdomen due to frequent touching of that area, as this improves patients abdominal pain. Patient reports a base line heart rate of 110-120 BPM. Patient denies erythema of eyes, sore throat, N/V, dysuria, hematuria, , edema, or dizziness. Patient has not received flu shot this year. Denies pertinent PMHx and regular medications. - History of Current Complaint Chief Complaint: EDFluSymptoms Time Seen by Provider: 02/08/19 09:44 Hx Obtained From: Patient Onset/Duration: Gradual Onset, Lasting Days Severity: Moderate Associated Signs & Symptoms: Fever, Myalgia, Cough, Nasal Congestion - Allergy/Home Medications Allergies/Adverse Reactions: Allergies Allergy/AdvReac Type Severity Reaction Status Date / Time amoxicillin Allergy Severe Hives Verified 02/08/19 09:43 PMH/Surg Hx/FS Hx/Imm Hx Endocrine/Hematology History: Denies: Hx Diabetes, Hx Sickle Cell Disease Cardiovascular History: Denies: Hx Hypertension, Hx Pacemaker/ICD Respiratory History: Reports: Hx Asthma - Pt is a smoker Sensory History: Denies: Hx Contacts or Glasses, Hx Legally Blind, Hx Deafness, Hx Hearing Aid Opthamlomology History: Denies: Hx Contacts or Glasses, Hx Legally Blind Psychiatric History: Reports: Hx Anxiety, Hx Depression Denies: Hx Eating Disorder, Hx of Violent Episodes Against Others - Surgical History Surgery Procedure, Year, and Place: tonsils, tubes, adenoids - Immunization History Date of Tetanus Vaccine: unk Date of Influenza Vaccine: none Infectious Disease History: No Infectious Disease History: Denies: Traveled Outside the [place] in Last 30 Days - Family History Known Family History: Positive: Other - Cancer Negative: Cardiac Disease, Diabetes - Social History Alcohol Use: Weekly Alcohol Amount: few drinks in the weekend Hx Substance Use: Yes Substance Use Type: Reports: None Substance Use Comment - Amount & Last Used: pt denies use Hx Tobacco Use: Yes Smoking Status (MU): Heavy Every Day Tobacco Smoker Type: Cigarettes Amount Used/How Often: 1 pack a day Have You Smoked in the Last Year: Yes Review of Systems Positive: Fever, Chills Negative: Erythema Positive: Nasal Discharge. Negative: Sore Throat Positive: Palpitations, Chest Pain Positive: Shortness Of Breath, Cough Positive: Abdominal Pain. Negative: Vomiting, Diarrhea, Nausea Negative: dysuria, hematuria Positive: Myalgia, Edema Positive: Rash Neurological: Negative - dizziness All Other Systems Reviewed And Are Negative: Yes Physical Exam - Summary Physical Exam Summary: Constitutional: Well-developed, Well-nourished, Alert. (-) Distressed Skin:Hot to touch, hives over right abdomen, Dry HENT: Normocephalic; Atraumatic Eyes: Conjunctiva normal Neck: Musculoskeletal ROM normal neck. (-) JVD, (-) Stridor, (-) Tracheal deviation Cardio: Rhythm regular, rate normal, Heart sounds normal; Intact distal pulses; The pedal pulses are 2+ and symmetric. Radial pulses are 2+ and symmetric. (-) Murmur Pulmonary/Chest wall: Effort normal. (-) Respiratory distress, (-) Wheezes, (-) Rales Abd: Soft, (-) tenderness, (-) Distension, (-) Guarding, (-) Rebound Musculoskeletal: (-) Edema Lymph: (-) Cervical adenopathy Neuro: Alert, Oriented x3 Psych: Mood and affect Normal Triage Information Reviewed: Yes Vital Signs On Initial Exam: Initial Vitals Temp Pulse Resp BP Pulse Ox 99.8 F 156 20 149/98 99 02/08/19 09:39 02/08/19 09:39 02/08/19 09:39 02/08/19 09:39 02/08/19 09:39 Vital Signs Reviewed: Yes Diagnostics - Vital Signs Vital Signs Temp Pulse Resp BP Pulse Ox 02/08/19 09:39 99.8 F 156 20 149/98 99 - Laboratory Result Diagrams: 02/08/19 10:04 02/08/19 10:04 Lab Statement: Any lab studies that have been ordered have been reviewed, and results considered in the medical decision making process. - Radiology CXR Radiology Interpretation Completed By: Radiologist Summary of Radiographic Findings: LEFT BASILAR ATELECTASIS VERSUS CONSOLIDATION. RECOMMEND FOLLOW-UP UNTIL. RESOLUTION TO EXCLUDE UNDERLYING PULMONARY PARENCHYMAL PATHOLOGY. ED Physician has reviewed this report. - CT Chest/abd/pelv CTA CT Interpretation Completed By: Radiologist Summary of CT Findings: Limited assessment due to artifact as noted without identification of an abdominal pelvic pathologic process. ED physician has reviewed this report. - EKG 1004 Cardiac Rate: Tachycardia - 148BPM EKG Rhythm: Sinus Tachycardia Summary of EKG Findings: Non STEMI. Re-Evaluation - Re-Evaluation 1st re-eval Re-Evaluation Time: 16:20 Change: Improved Comment: The pt ambulated around the ED twice. Her SaO2 was at 100%, her temperature is 98 deg. Fahrenheit, and she reports her normal HR is between 110 and 120bpm. She reports feeling better. Flu Symptom Course/Dx - Course Course Of Treatment: This patient is a 23 year old F presenting to [facility] accompanied by family with a chief complaint of flu-like symptoms including fever, rhinorrhea, SOB, cough, and body aches for the past three days. She also reports increased pain with cp, abd pain, rapid HR, and rash. Patient denies erythema of eyes, sore throat, N/V, dysuria, hematuria, edema, or dizziness. Patient has not received flu shot this year. The pt is negative for Influenza A &B. CXR shows LEFT BASILAR ATELECTASIS VERSUS CONSOLIDATION. RECOMMEND FOLLOW- UP UNTIL RESOLUTION TO EXCLUDE UNDERLYING PULMONARY PARENCHYMAL PATHOLOGY. EKG shows sinus tachycardia at 148bpm. Chest/abd/pelv CTA shows limited assessment due to artifact as noted without identification of an abdominal pelvic pathologic process. As of 1619, the pt ambulated around the ED twice. Her SaO2 was at 100%, her temperature is 98 deg. Fahrenheit, and she reports her normal HR is between 110 and 120bpm. She reports feeling better, and will be d/c'ed home with dx including amphetamine abuse and community acquired PNA. She received instructions to follow up with [facility] in 2-3 days, and she is agreeable with this plan. - Diagnoses Provider Diagnoses: Amphetamine abuse, Community acquired pneumonia Discharge - Sign-Out/Discharge Documenting (check all that apply): Patient Departure Patient Received Moderate/Deep Sedation with Procedure: No - Discharge Plan Condition: Stable Disposition: HOME Prescriptions: Azithromycin TAB* [Zithromax TAB (Z-NASH) 250 mg #6 tabs] 2 tab PO .TODAY, THEN 1 DAILY #1 nash Referrals: Alexander SUÁREZ,Zach Garcia [Medical Doctor] - [facility] [Outside] Additional Instructions: Please follow up with [facility] in the next 2-3 days. Return to the ED with any new or worsening symptoms. - Attestation Statements Document Initiated by Scribe: Yes Documenting Scribe: Chacha Almaraz Provider For Whom Scribe is Documenting (Include Credential): Serg Canseco MD Scribe Attestation: IChacha, scribed for Serg Canseco MD on 02/08/19 at 1626. Status of Scribe Document: Ready
[2019-02-08 10:11] LABS: Hematocrit 41 % (33-41); Hemoglobin 13.7 g/dL (12.0-16.0); Mean Corpuscular HGB Conc 34 g/dL (31-36); Mean Corpuscular Hemoglobin 30 pg (27-31); Mean Corpuscular Volume 89 fL (80-97); Mean Platelet Volume 7.4 fL (7.4-10.4); Platelet Count 310 10^3/uL (150-450); Red Blood Count 4.55 10^6 /uL (3.70-4.87); Red Cell Distribution Width 13 % (10.5-15); White Blood Count 18.7 10^3/uL (3.5-10.8)
[2019-02-08 10:27] LABS: Influenza A Molecular NEGATIVE (Negative); Influenza B Molecular NEGATIVE (Negative)
[2019-02-08 10:29] LABS: ALT 10 U/L (7-52); AST 14 U/L (13-39); Albumin 4.6 g/dL (3.2-5.2); Albumin/Globulin Ratio 1.4 (1-3); Alkaline Phosphatase 50 U/L (34-104); Anion Gap 12 mmol/L (2-11); BUN/Creatinine Ratio 8.7 (8-20); Blood Urea Nitrogen 6 mg/dL (6-24); CO2 Carbon Dioxide 22 mmol/L (22-32); Calcium 9.9 mg/dL (8.6-10.3); Chloride 98 mmol/L (101-111); EGFR Non-African American 107.4 (>60); Globulin 3.2 g/dL (2-4); Glucose 113 mg/dL (70-100); Magnesium 1.7 mg/dL (1.9-2.7); Potassium 3.4 mmol/L (3.5-5.0); Sodium 132 mmol/L (135-145); Total Protein 7.8 g/dL (6.4-8.9)
[2019-02-08 10:38] LABS: ABS Basophils 0 10^3/ul (0-0.2); ABS Eosinophils 0 10^3/ul (0-0.6); ABS Lymphocytes 1.3 10^3/ul (1.0-4.8); ABS Monocytes 2.2 10^3/ul (0-0.8); ABS Neutrophils 15.2 10^3/ul (1.5-7.7); ABS Nucleated RBC 0 10^3/ul; Eosinophil % 0 %; Lymphocyte % 6.9 %; Nucleated Red Blood Cells % 0.1
[2019-02-08 10:50] LABS: HCG Pregnancy < 0.60 mIU/mL
[2019-02-08 11:09] LABS: TSH (Thyroid Stimulating Horm) 0.28 mcIU/mL (0.34-5.60)
[2019-02-08 11:22] LABS: Urine Appearance Clear; Urine Bacteria Absent (Absent); Urine Bilirubin Negative (Negative); Urine Blood 2+ (Negative); Urine Color Straw; Urine Glucose Negative (Negative); Urine Ketones Trace (Negative); Urine Nitrite Negative (Negative); Urine Protein Negative (Negative); Urine Red Blood Cell Trace(0-2/hpf) (Absent); Urine Specific Gravity 1.002 (1.010-1.030); Urine Squamous Epithelial Cell Present (Absent); Urine Urobilinogen Negative (Negative); Urine White Blood Cell Absent (Absent)
[2019-02-08 13:05] LABS: Influenza A Molecular NEGATIVE (Negative); Influenza B Molecular NEGATIVE (Negative)
[2019-02-08 13:15] LABS: Barbiturates Urine Screen None Detected (None Detect); Benzodiazepine Urine Screen None Detected (None Detect); Urine Cannabinoids Screen None Detected (None Detect)
[2019-02-08] MEDS ORDERED: Iohexol 350* (CONTRAST) 500 ML MDV IV ONE (13:46)
[2019-02-08] MEDS ORDERED: cefTRIAXone(*) 1 GM in NS 0.9% 50 ML* 50 ML IVPB ONE (14:10)
[2019-02-08] MEDS ORDERED: Azithromycin 500 mg/250 ml 500 MG/250 ML PREMIX.SET IVPB ONE (14:10)
[2019-02-08] MEDS ORDERED: HYDROcodone/ACETAMIN 5-325 MG* 1 TAB PO ONE (16:50)
[2019-02-08] MEDS ORDERED: Albuterol HFA INHALER* 8 gm MDI INH ONE (16:50)
[2019-02-08] MEDS ORDERED: Ketorolac INJ* 30 MG/ML 1 ML VIAL IV PUSH ONE (16:50)
[2019-02-08 17:45] VITALS: BP 110/61
== END 2019-02-08 17:44 | disposition home or self-care (01) ==
LOC: ED 09:30
DX: J18.1 Lobar pneumonia, unspecified organism (principal); F15.10 Other stimulant abuse, uncomplicated; J45.909 Unspecified asthma, uncomplicated; R00.0 Tachycardia, unspecified; F17.210 Nicotine dependence, cigarettes, uncomplicated; F32.9 Major depressive disorder, single episode, unspecified; F41.9 Anxiety disorder, unspecified
CPT/HCPCS: 36415; 71045; 71275; 74177; 80053; 80307; 81003; 81015; 83605; 83735; 84443; 84484; 84702; 85025; 93005; 96361; 96365; 96366; 96375; 99284; A9270-GY; J0456; J0696; J1885; Q9967

== ENCOUNTER 2019-04-24 10:45 | Emergency (ER) | payer OTHER ==
[2019-04-24 10:57] VITALS: BP 115/68
--- NOTE | 2019-04-24 11:15 | UC ---
Complaint Female HPI - HPI Summary HPI Summary: 3-4 days burning urine and frequency, LMP: 2 weeks ago. has tried no treatment thus far - History Of Current Complaint Chief Complaint: UCGU Stated Complaint: URINARY COMPLAINT Time Seen by Provider: 04/24/19 10:47 Hx Obtained From: Patient Hx Last Menstrual Period: 2.5 weeks ago ?: No Onset/Duration: Gradual Onset Timing: Constant Severity Initially: Mild Severity Currently: Moderate Pain Intensity: 3 Character: Burning Aggravating Factor(s): Urination Alleviating Factor(s): Nothing Associated Signs And Symptoms: Negative: Fever, Back Pain - Allergies/Home Medications Allergies/Adverse Reactions: Allergies Allergy/AdvReac Type Severity Reaction Status Date / Time amoxicillin Allergy Severe Hives Verified 04/24/19 10:57 PMH/Surg Hx/FS Hx/Imm Hx Previously Healthy: Yes - Surgical History Surgical History: Yes Surgery Procedure, Year, and Place: tonsils, ear tubes, adenoids - Family History Known Family History: Positive: Other - Cancer Negative: Cardiac Disease, Diabetes - Social History Occupation: Unemployed Lives: With Family Alcohol Use: Weekly Alcohol Amount: few drinks in the weekend Substance Use Type: None Substance Use Comment - Amount & Last Used: pt denies use Smoking Status (MU): Heavy Every Day Tobacco Smoker Type: Cigarettes Amount Used/How Often: 1 pack a day Have You Smoked in the Last Year: Yes Household Exposure Type: Cigarettes Cessation Counseling: Patient Advised to Stop - Immunization History Most Recent Influenza Vaccination: 09/12/16 Most Recent Tetanus Shot: 2016 Most Recent Pneumonia Vaccination: never Review of Systems All Other Systems Reviewed And Are Negative: Yes Skin: Positive: Negative Respiratory: Positive: Negative Cardiovascular: Positive: Negative Gastrointestinal: Negative: Abdominal Pain, Nausea Genitourinary: Positive: Dysuria, Frequency Neurological: Positive: Negative Is Patient Immunocompromised?: No Physical Exam Triage Information Reviewed: Yes Appearance: Well-Appearing, No Pain Distress, Well-Nourished Vital Signs: Initial Vital Signs Temp 98.8 F 04/24/19 10:55 Pulse 98 04/24/19 10:55 Resp 16 04/24/19 10:55 BP 115/68 04/24/19 10:55 Pulse Ox 100 04/24/19 10:55 Vital Signs Reviewed: Yes Respiratory Exam: Normal Cardiovascular Exam: Normal Musculoskeletal Exam: Normal Neurological Exam: Normal Skin Exam: Normal Complaint Female Dx - Differential Dx/Diagnosis Differential Diagnosis/HQI/PQRI: , Ureteral Stone, Urinary Tract Infection Provider Diagnosis: UTI (urinary tract infection) Discharge - Sign-Out/Discharge Documenting (check all that apply): Patient Departure All imaging exams completed and their final reports reviewed: No Studies - Discharge Plan Condition: Good Disposition: HOME Prescriptions: Ciprofloxacin TAB* [Cipro 500 MG TAB*] 500 mg PO BID #6 tab Patient Education Materials: Urinary Tract Infection in Women (ED) Referrals: No Primary Care Phys,NOPCP [Primary Care Provider] - Additional Instructions: drink plenty of fluids and start cipro antibiotic as directed follow-up with urine culture result Report to ER if you develop fever, chills or worsening symptoms - Billing Disposition and Condition Condition: GOOD Disposition: Home - Attestation Statements Provider Attestation: I was available for consult. This patient was seen by the KIMMIE. The patient was not presented to, seen by, or examined by me. -Peng
--- NOTE | 2019-04-25 16:11 | UC ---
- Progress Note Progress Note: 04/25/2019 final urine culture reports: possible contamination. Pt Rx Ciprofloxacin PO No change Elsy CLIFFORD Course/Dx - Diagnoses Provider Diagnoses: UTI (urinary tract infection) Discharge - Sign-Out/Discharge Documenting (check all that apply): Post-Discharge Follow Up All imaging exams completed and their final reports reviewed: No Studies - Discharge Plan Condition: Good Disposition: HOME Prescriptions: Ciprofloxacin TAB* [Cipro 500 MG TAB*] 500 mg PO BID #6 tab Patient Education Materials: Urinary Tract Infection in Women (ED) Referrals: No Primary Care Phys,NOPCP [Primary Care Provider] - Additional Instructions: drink plenty of fluids and start cipro antibiotic as directed follow-up with urine culture result Report to ER if you develop fever, chills or worsening symptoms - Billing Disposition and Condition Condition: GOOD Disposition: Home
== END 2019-04-24 11:29 | disposition home or self-care (01) ==
LOC: UCEAST 10:45
DX: N39.0 Urinary tract infection, site not specified (principal); F17.210 Nicotine dependence, cigarettes, uncomplicated
CPT/HCPCS: 81003; 84702; 87086; 99212; G0463

== ENCOUNTER 2019-05-12 14:37 | Emergency (ER) | payer OTHER ==
[2019-05-12 15:15] VITALS: BP 124/79
--- NOTE | 2019-05-12 17:02 | UC ---
Truncal Trauma HPI - HPI Summary HPI Summary: Patient complains of several months of overall malaise and sensation of shortness of breath. About 4 days ago someone picked her up from behind to crack her back and patient felt a popping in the left side of her chest. States worsening left rib cage pain since then and is concerned about a cracked rib. Of note patient states that she has had a resting heart rate in the 120s to 130s for over a year. She is unable to gain any weight and feels somewhat jittery. - History Of Current Complaint Chief Complaint: UCChestPain Stated Complaint: RIB INJURY Time Seen by Provider: 05/12/19 16:27 Hx Obtained From: Patient, Family/Barrel Bander - SISTER Hx Last Menstrual Period: 1 week ago Onset/Duration: Gradual Onset, Lasting Weeks Severity Initially: Moderate Severity Currently: Moderate Pain Intensity: 8 Pain Scale Used: 0-10 Numeric Aggravating Factor(s): Movement, Deep Breathing, Cough Alleviating factor(s): Rest Associated Signs And Symptoms: Positive: SOB, Chest Pain - Allergies/Home Medications Allergies/Adverse Reactions: Allergies Allergy/AdvReac Type Severity Reaction Status Date / Time amoxicillin Allergy Severe Hives Verified 04/24/19 10:57 Home Medications: Home Medications Ibuprofen TAB* [Motrin TAB* 800 MG] 1 tab PO QID 05/12/19 [History Confirmed 08/21] PMH/Surg Hx/FS Hx/Imm Hx Respiratory History: Asthma - Surgical History Surgical History: Yes Surgery Procedure, Year, and Place: tonsils, ear tubes, adenoids - Family History Known Family History: Positive: Other - Cancer Negative: Cardiac Disease, Diabetes - Social History Alcohol Use: Weekly Alcohol Amount: few drinks in the weekend Substance Use Type: None Substance Use Comment - Amount & Last Used: pt denies use Smoking Status (MU): Heavy Every Day Tobacco Smoker Type: Cigarettes Amount Used/How Often: 1 pack a day Have You Smoked in the Last Year: Yes Household Exposure Type: Cigarettes - Immunization History Most Recent Influenza Vaccination: 09/12/16 Most Recent Tetanus Shot: 2016 Most Recent Pneumonia Vaccination: never Review of Systems All Other Systems Reviewed And Are Negative: Yes Constitutional: Positive: Negative Skin: Positive: Negative Respiratory: Positive: Shortness Of Breath Cardiovascular: Positive: Palpitations, Chest Pain Gastrointestinal: Positive: Negative Musculoskeletal: Positive: Arthralgia Physical Exam Triage Information Reviewed: Yes Appearance: Well-Appearing, No Pain Distress, Well-Nourished Vital Signs: Initial Vital Signs Temp 99.3 F 05/12/19 15:09 Pulse 120 05/12/19 15:09 Resp 16 05/12/19 15:09 BP 124/79 05/12/19 15:09 Pulse Ox 100 05/12/19 15:09 Vital Signs Reviewed: Yes Eyes: Positive: Conjunctiva Clear ENT: Positive: Hearing grossly normal Neck: Positive: Supple, Nontender, No Lymphadenopathy Respiratory Exam: Normal Cardiovascular: Positive: Tachycardia Abdomen Description: Positive: Soft Musculoskeletal: Positive: ROM Intact, No Edema, Other: - TTP LEFT RIB CAGE Diagnostics - Radiology LEFT RIB XRAYS Radiology Interpretation Completed By: Radiologist Summary of Radiographic Findings: UNREMARKABLE Truncal Trauma Course/Dx - Course Course Of Treatment: RIB X-RAYS UNREMARKABLE. I SUSPECT MANY OF HER SYMPTOMS CAN BE EXPLAINED BY BEING IN A STATE OF HYPERTHYROIDISM. TSH CHECKED 02/08/19 WAS LOW AT 0.28. I HAVE STRONGLY ENCOURAGED HER TO FOLLOW-UP WITH HER PRIMARY CARE PROVIDER. SHE DECLINES REPEAT LAB WORK TODAY. SHE DECLINES EKG TODAY. SHE DECLINES TRANSFER TO THE ER TODAY. I RECOMMENDED SHE GO TO THE ER FOR FURTHER EVALUATION IF HER SYMPTOMS WORSEN. - Differential Dx/Diagnosis Provider Diagnosis: Tachycardia, Chest wall pain Discharge - Sign-Out/Discharge Documenting (check all that apply): Patient Departure All imaging exams completed and their final reports reviewed: No Studies - Discharge Plan Condition: Stable Disposition: HOME Patient Education Materials: Hyperthyroidism (ED), Tachycardia (ED) Referrals: No Primary Care Phys,NOPCP [Primary Care Provider] - Additional Instructions: RIB XRAYS TODAY NEGATIVE FOR FRACTURE. I'M CONCERNED THAT MANY OF YOUR SYMPTOMS MAY BE EXPLAINED BY HYPERTHYROIDISM. YOUR TSH WAS LOW WHEN CHECKED IN THE ER BACK IN FEBRUARY. I STRONGLY RECOMMEND YOU FOLLOW-UP WITH YOUR PCP AT [facility] FOR REEVALUATION OF YOUR THYROID STATUS. HAVING A BASELINE HEART RATE IN THE 120S CAN LEAD TO DAMAGE OF THE HEART OVER THE USP. YOU HAVE DECLINED LAB WORK TODAY IN FAVOR OF FOLLOWING UP WITH YOUR PCP AND/OR GOING TO THE EMERGENCY ROOM TOMORROW. PLEASE DO NOT DELAY EVALUATION. - Billing Disposition and Condition Condition: STABLE Disposition: Home
== END 2019-05-12 17:50 | disposition home or self-care (01) ==
LOC: UCEAST 14:37
DX: R00.0 Tachycardia, unspecified (principal); R07.89 Other chest pain; F17.210 Nicotine dependence, cigarettes, uncomplicated
CPT/HCPCS: 99211; G0463

== ENCOUNTER 2019-05-13 16:27 | Emergency (ER) | payer OTHER ==
[2019-05-13 17:44] LABS: ABS Eosinophils 0.2 10^3/ul (0-0.6); ABS Lymphocytes 1.7 10^3/ul (1.0-4.8); ABS Monocytes 0.5 10^3/ul (0-0.8); ABS Neutrophils 3.8 10^3/ul (1.5-7.7); Eosinophil % 3.4 %; Hematocrit 39 % (35-47); Hemoglobin 13.3 g/dL (12.0-16.0); Lymphocyte % 26.5 %; Mean Corpuscular HGB Conc 34 g/dL (31-36); Mean Corpuscular Hemoglobin 31 pg (27-31); Mean Corpuscular Volume 91 fL (80-97); Mean Platelet Volume 7.7 fL (7.4-10.4); Nucleated Red Blood Cells % 0.2; Platelet Count 274 10^3/uL (150-450); Red Blood Count 4.26 10^6 /uL (3.70-4.87); Red Cell Distribution Width 14 % (10-15); White Blood Count 6.2 10^3/uL (3.5-10.8)
[2019-05-13 18:02] LABS: Albumin 4.2 g/dL (3.2-5.2); Albumin/Globulin Ratio 1.7 (1-3); Calcium 9.1 mg/dL (8.6-10.3); EGFR African American 157.3 (>60); Globulin 2.5 g/dL (2-4); Magnesium 1.9 mg/dL (1.9-2.7); Potassium 3.9 mmol/L (3.5-5.0); Total Bilirubin 0.3 mg/dL (0.2-1.0); Total Protein 6.7 g/dL (6.4-8.9)
[2019-05-13 18:20] LABS: TSH (Thyroid Stimulating Horm) 0.22 mcIU/mL (0.34-5.60)
[2019-05-13] MEDS ORDERED: oxyCODONE TAB* 5 MG TAB PO ONE (22:40)
--- NOTE | 2019-05-14 00:54 | ED ---
HPI Chest Pain - HPI Summary HPI Summary: Patient complains of left-sided chest pain 2 months, described as intermittent , progressive over the past 4 days. Patient sent by urgent care to ED for further evaluation. Patient has history of hypothyroidism, chronic tachycardia. Pain is worse with deep inhalation, cough and movement. Denies any other symptoms injury or pain. - History of Current Complaint Chief Complaint: EDGeneral Time Seen by Provider: 05/13/19 21:19 Hx Obtained From: Patient Hx Last Menstrual Period: 1 week ago Onset/Duration: Started Weeks Ago Timing: Intermittent Initial Severity: Moderate Current Severity: Moderate Pain Intensity: 6 Pain Scale Used: 0-10 Numeric Chest Pain Location: Left Anterior Chest Pain Radiates: No Character: Sharp/Stabbing Aggravating Factor(s): Movement, Deep Breaths Alleviating Factor(s): Nothing Associated Signs and Symptoms: Positive: Chest Pain - Additional Pertinent History Primary Care Physician: SIMONE - Allergy/Home Medications Allergies/Adverse Reactions: Allergies Allergy/AdvReac Type Severity Reaction Status Date / Time amoxicillin Allergy Severe Hives Verified 04/24/19 10:57 PMH/Surg Hx/FS Hx/Imm Hx Endocrine/Hematology History: Denies: Hx Diabetes, Hx Sickle Cell Disease, Hx Thyroid Disease Cardiovascular History: Denies: Hx Hypertension, Hx Pacemaker/ICD Respiratory History: Reports: Hx Asthma - Pt is a smoker Denies: Hx Chronic Obstructive Pulmonary Disease (COPD) GI History: Denies: Hx Ulcer History: Denies: Hx Renal Disease Sensory History: Denies: Hx Contacts or Glasses, Hx Legally Blind, Hx Deafness, Hx Hearing Aid Opthamlomology History: Denies: Hx Contacts or Glasses, Hx Legally Blind Psychiatric History: Reports: Hx Anxiety, Hx Depression Denies: Hx Eating Disorder, Hx of Violent Episodes Against Others - Surgical History Surgery Procedure, Year, and Place: tonsils, ear tubes, adenoids - Immunization History Date of Tetanus Vaccine: unk Date of Influenza Vaccine: none Infectious Disease History: No Infectious Disease History: Denies: Hx Hepatitis, Hx Human Immunodeficiency Virus (HIV), Traveled Outside the [place] in Last 30 Days - Family History Known Family History: Positive: Other - Cancer Negative: Cardiac Disease, Diabetes - Social History Alcohol Use: Weekly Alcohol Amount: few drinks in the weekend Hx Substance Use: Yes Substance Use Type: Reports: None Substance Use Comment - Amount & Last Used: pt denies use Hx Tobacco Use: Yes Smoking Status (MU): Heavy Every Day Tobacco Smoker Type: Cigarettes Amount Used/How Often: 1 pack a day Have You Smoked in the Last Year: Yes Review of Systems Constitutional: Negative Eyes: Negative ENT: Negative Positive: Chest Pain Respiratory: Negative Gastrointestinal: Negative Genitourinary: Negative Musculoskeletal: Negative Skin: Negative Neurological: Negative Psychological: Normal All Other Systems Reviewed And Are Negative: Yes Physical Exam - Summary Physical Exam Summary: Chest pain reproducible. Lung sounds clear to auscultation bilaterally. No ecchymosis, erythema, deformity, swelling noted to chest. Abdomen soft nontender. Triage Information Reviewed: Yes Vital Signs On Initial Exam: Initial Vitals Temp Pulse Resp BP Pulse Ox 98.7 F 109 18 142/91 99 05/13/19 16:44 05/13/19 16:44 05/13/19 16:44 05/13/19 16:44 05/13/19 16:44 Vital Signs Reviewed: Yes Appearance: Positive: Well-Appearing Skin: Positive: Warm Head/Face: Positive: Normal Head/Face Inspection Eyes: Positive: Normal Neck: Positive: Supple Respiratory/Lung Sounds: Positive: Clear to Auscultation Cardiovascular: Positive: Normal Abdomen Description: Positive: Nontender Musculoskeletal: Positive: Normal Neurological: Positive: Normal Psychiatric: Positive: Normal AVPU Assessment: Alert - [place] Coma Scale Best Eye Response: 4 - Spontaneous Best Motor Response: 6 - Obeys Commands Best Verbal Response: 5 - Oriented Coma Scale Total: 15 Diagnostics - Vital Signs Vital Signs Temp Pulse Resp BP Pulse Ox 05/14/19 00:00 78 17 99 05/13/19 23:14 83 30 121/84 99 05/13/19 23:00 80 13 97 05/13/19 22:45 88 17 110/89 99 05/13/19 22:15 95 18 90/78 100 05/13/19 22:00 91 20 100 05/13/19 21:44 88 15 117/81 100 05/13/19 21:16 95 98 05/13/19 21:15 98 111/85 96 05/13/19 20:40 98.7 F 95 16 113/74 98 05/13/19 18:18 98.1 F 101 20 128/73 100 05/13/19 16:44 98.7 F 109 18 142/91 99 - Laboratory Lab Results: Lab Results 05/13/19 05/13/19 05/13/19 Range/Units 17:34 17:34 17:34 WBC 6.2 (3.5-10.8) 10^3/uL RBC 4.26 (3.70-4.87) 10^6 /uL Hgb 13.3 (12.0-16.0) g/dL Hct 39 (35-47) % MCV 91 (80-97) fL MCH 31 (27-31) pg MCHC 34 (31-36) g/dL RDW 14 (10-15) % Plt Count 274 (150-450) 10^3/uL MPV 7.7 (7.4-10.4) fL Neut % (Auto) 61.5 % Lymph % (Auto) 26.5 % Carlton % (Auto) 8.0 % Eos % (Auto) 3.4 % Baso % (Auto) 0.6 % Absolute Neuts (auto) 3.8 (1.5-7.7) 10^3/ul Absolute Lymphs (auto) 1.7 (1.0-4.8) 10^3/ul Absolute Monos (auto) 0.5 (0-0.8) 10^3/ul Absolute Eos (auto) 0.2 (0-0.6) 10^3/ul Absolute Basos (auto) 0.0 (0-0.2) 10^3/ul Absolute Nucleated RBC 0.0 10^3/ul Nucleated RBC % 0.2 Sodium 140 (135-145) mmol/L Potassium 3.9 (3.5-5.0) mmol/L Chloride 109 (101-111) mmol/L Carbon Dioxide 27 (22-32) mmol/L Anion Gap 4 (2-11) mmol/L BUN 11 (6-24) mg/dL Creatinine 0.58 (0.51-0.95) mg/dL Est GFR ( Amer) 157.3 (>60) Est GFR (Non-Af Amer) 130.0 (>60) BUN/Creatinine Ratio 19.0 (8-20) Glucose 90 (70-100) mg/dL Lactic Acid 1.4 (0.5-2.0) mmol/L Calcium 9.1 (8.6-10.3) mg/dL Magnesium 1.9 (1.9-2.7) mg/dL Total Bilirubin 0.30 (0.2-1.0) mg/dL AST 14 (13-39) U/L ALT 9 (7-52) U/L Alkaline Phosphatase 47 (34-104) U/L Troponin I 0.00 (<0.04) ng/mL Total Protein 6.7 (6.4-8.9) g/dL Albumin 4.2 (3.2-5.2) g/dL Globulin 2.5 (2-4) g/dL Albumin/Globulin Ratio 1.7 (1-3) TSH 0.22 L (0.34-5.60) mcIU/mL Result Diagrams: 05/13/19 17:34 05/13/19 17:34 Lab Statement: Any lab studies that have been ordered have been reviewed, and results considered in the medical decision making process. Chest Pain Course/Dx - Course Course Of Treatment: Patient complains of left-sided chest pain 2 months, described as intermittent, progressive over the past 4 days. Patient sent by urgent care to ED for further evaluation. Patient has history of hypothyroidism , chronic tachycardia. Pain is worse with deep inhalation, cough and movement. Denies any other symptoms injury or pain. Vital signs within normal limits. Labs unremarkable. Chest x-ray negative. EKG sinus tachycardia heart rate 103. TSH 0.22. Follow-up with primary care and cardiology. - Diagnoses Provider Diagnoses: Chest wall pain Discharge - Sign-Out/Discharge Documenting (check all that apply): Patient Departure Patient Received Moderate/Deep Sedation with Procedure: No - Discharge Plan Condition: Stable Disposition: HOME Prescriptions: Oxycodone HCl 5 mg PO TID 2 Days #6 tablet MDD 3 tabs Patient Education Materials: Chest Wall Pain (ED) Referrals: Arti Sparks NP [Primary Care Provider] - [facility] [Outside] Servando Cordova MD [Medical Doctor] - Additional Instructions: Alternate ibuprofen 400 mg with Tylenol 650 mg every 3 hours for chest wall pain. Follow-up with [facility] for primary care for further evaluation of hyperthyroidism. Follow-up with rn delivery Dr. Cordova for further evaluation of tachycardia. Return to the ED for any new or worsening symptoms. - Billing Disposition and Condition Condition: STABLE Disposition: Home
[2019-05-14 01:09] VITALS: BP 131/85
== END 2019-05-14 01:08 | disposition home or self-care (01) ==
LOC: ED 16:27
DX: R07.89 Other chest pain (principal); F17.210 Nicotine dependence, cigarettes, uncomplicated; Z88.1 Allergy status to other antibiotic agents
CPT/HCPCS: 36415; 80053; 83605; 83735; 84443; 84484; 85025; 85379; 93005; 99283; A9270-GY